=== PATIENT | female | born 1940 | race Caucasian/White ===

== ENCOUNTER 2020-10-15 11:25 | Day surgery (SDCO) | payer MEDICARE, OTHER ==
[2020-10-15 12:20] LABS: BASOPHIL 0.7 % (0-2); EOSINOPHIL 3.1 % (0-7); HCT 40.1 % (37.0-47.0); HGB 12.9 g/dl (12.5-16.0); LYMPHOCYTE 21.5 % (15-48); MCH 31.7 pg (25.0-31.0); MCHC 32.2 g/dL (32.0-36.0); MCV 98.5 fL (78.0-100.0); MONOCYTE 9.4 % (0-12); MPV 8.8 fL (6.0-9.5); NEUTROPHIL 65.2 % (41-80); NRBC 0; PLT 247 K/uL (150-400); RBC 4.07 M/uL (4.20-5.40); RDW 14.1 % (11.5-14.0); WBC 6.7 K/uL (4.0-10.5)
[2020-10-15 12:30] LABS: INR 1.01 (0.9-1.2); PROTHROMBIN TIME 12.6 SECONDS (11.4-13.6); PTT 27.5 SECONDS (22.2-34.7)
[2020-10-15 12:37] LABS: ALBUMIN 3.2 g/dL (3.4-5.0); BILIRUBIN - TOTAL 0.5 mg/dL (0.2-1.0); BUN/CREAT RATIO (CALC) 18.6 RATIO; CREATININE 0.97 mg/dL (0.51-0.95); GLOBULIN (CALCULATION) 3.7 g/dL; POTASSIUM 4.1 mmol/L (3.5-5.1); TOTAL PROTEIN 6.9 g/dL (6.4-8.2)
[2020-10-15 12:39] LABS: BILIRUBIN NEGATIVE (NEGATIVE); BLOOD NEGATIVE Ery/uL (NEGATIVE); CLARITY CLEAR (CLEAR); COLOR YELLOW (YELLOW); GLUCOSE (U) NORMAL (NORMAL); LEUKOCYTES TRACE Leu/uL (NEGATIVE); NITRITE NEGATIVE (NEGATIVE); PROTEIN NEGATIVE (NEGATIVE); SPECIFIC GRAVITY 1.015 (1.001-1.030); UROBILINOGEN 0.2 mg/dL (0.2-1.0)
[2020-10-15 12:48] LABS: BACTERIA TRACE; URINARY RBC RARE
[2020-10-15] MEDS ORDERED: ALLOPURINOL300 MG PO (15:11)
[2020-10-15] MEDS ORDERED: ELAVIL50 MG PO (15:12)
[2020-10-15] MEDS ORDERED: PROTONIX 40MG T40 MG PO (15:12)
[2020-10-15] MEDS ORDERED: LOVAZA1 GM PO (15:13)
[2020-10-15] MEDS ORDERED: FLEXERIL5 MG PO (15:13)
[2020-10-15] MEDS ORDERED: ASPIRIN EC81 MG PO (15:13)
[2020-10-16 05:37] LABS: BASOPHIL 0.9 % (0-2); EOSINOPHIL 5.3 % (0-7); HGB 13.4 g/dl (12.5-16.0); LYMPHOCYTE 39.8 % (15-48); MCH 30.9 pg (25.0-31.0); MCHC 31.9 g/dL (32.0-36.0); MCV 96.8 fL (78.0-100.0); MPV 8.6 fL (6.0-9.5); NEUTROPHIL 43.8 % (41-80); NRBC 0; PLT 273 K/uL (150-400); RBC 4.34 M/uL (4.20-5.40); RDW 14.1 % (11.5-14.0); WBC 5.7 K/uL (4.0-10.5)
[2020-10-16 05:57] LABS: CREATININE 1.12 mg/dL (0.51-0.95); POTASSIUM 4.5 mmol/L (3.5-5.1)
[2020-10-16 06:02] LABS: PRO-BNP 274 pg/mL (<450)
== END 2020-10-16 11:09 | disposition home or self-care (01) ==
LOC: FER 11:25 → FMS 13:29
PROVIDERS: Emergency Medicine; ADMIT Allergy & Immunology Allergy
DX: G45.9 Transient cerebral ischemic attack, unspecified (principal); M10.9 Gout, unspecified; F32.9 Major depressive disorder, single episode, unspecified; K21.9 Gastro-esophageal reflux disease without esophagitis; K46.9 Unspecified abdominal hernia without obstruction or gangrene; R55 Syncope and collapse; R29.810 Facial weakness; R47.81 Slurred speech; Z90.710 Acquired absence of both cervix and uterus; Z96.611 Presence of right artificial shoulder joint; Z79.899 Other long term (current) drug therapy; Z20.822 Contact with and (suspected) exposure to COVID-19; Z90.49 Acquired absence of other specified parts of digestive tract; Z98.51 Tubal ligation status; Z88.2 Allergy status to sulfonamides; Z98.1 Arthrodesis status
CPT/HCPCS: 36415; 70450; 71045; 80048; 80053; 80061; 81001; 83036; 83880; 84484; 85025; 85610; 85730; 93005; 93880; G0378; U0002

== ENCOUNTER 2020-11-27 19:48 | Emergency (ER) | payer MEDICARE, OTHER ==
[~2020-11-27 19:48] MED LIST: ALLOPURINOL300 MG PO; ASPIRIN EC81 MG PO; ELAVIL50 MG PO; FLEXERIL5 MG PO; LOVAZA1 GM PO; PROTONIX 40MG T40 MG PO
[2020-11-27] MEDS ORDERED: PERCOCET 5-3251 EACH PO (22:33)
== END 2020-11-27 23:02 | disposition home or self-care (01) ==
LOC: FER 19:48
DX: S70.12XA Contusion of left thigh, initial encounter (principal); M10.9 Gout, unspecified; Z79.899 Other long term (current) drug therapy; W18.09XA Striking against other object with subsequent fall, initial encounter; Y92.009 Unspecified place in unspecified non-institutional (private) residence as the place of occurrence of the external cause
CPT/HCPCS: 72170; 73552; J2270